=== PATIENT | female | born 1975 ===

== ENCOUNTER → 2024-12-05 08:33 | Outpatient (CLI) | payer OTHER ==
[2024-12-05 09:20] LABS: BASO % 1.3 % (0.1-1.2); EOS # 0.27 (0.04-0.54); EOS % 6.8 % (0.7-7.0); LYMPH # 1.09 (1.18-3.74); LYMPH % 27.6 % (19.3-53.1); MEAN PLATELET VOLUME 9.80 fl (9.4-12.4); MONO # 0.43 (0.24-0.82); MONO % 10.9 % (4.7-12.5); NEUT # 2.10 (1.56-6.13); NEUT % 53.1 % (34.0-71.1); RED CELL DISTRIBUTION WIDTH 14.6 % (11.6-14.4)
[2024-12-05 10:21] LABS: URINE APPEARANCE Clear; URINE BILIRRUBIN Negative (NEGATIVE); URINE BLOOD Moderate; URINE COLOR Yellow; URINE GLUCOSE Negative (NEGATIVE); URINE KETONE Negative (NEGATIVE); URINE LEUKOCYTE Negative; URINE NITRATE Negative; URINE PROTEIN Negative (NEGATIVE); URINE UROBILINOGEN 0.2 E.U./dl
[2024-12-05 10:25] LABS: URINE BACTERIA 50.3 uL (0.0-1933); URINE EPITHELIAL CELLS 3.6 uL (0.0-38.8); URINE RBC 24.9 uL (0.0-20.8); URINE WBC 5.5 uL (0.0-23.2)
[2024-12-05 10:28] LABS: CREATININE URINE RANDOM 111.0 MG/DL (30-125)
[2024-12-05 10:45] LABS: URINE CAST 0.00 uL (0.0-1.40)
[2024-12-05 10:47] LABS: % SATURACION 12.6 % (15-50); ALT/SGPT 16.0 U/L (12-78); AST/SGOT 14.0 U/L (15-37); BILIRUBIN TOTAL 0.42 mg/dL (0.3-1.2); BUN CREA RATIO 18.0 (7.0-25.0); CREATININE SERUM 0.74 mg/dL (0.55-1.02); FE 49.0 ug/dl (50-170); GFR 82.74; GLOBULINA 3.6 G/DL (2.4-3.5); GLUCOSE FASTING 77.0 mg/dL (65-100); LDH 151.0 U/L (84-246); OSMOLALITY SERUM 280.0 MOSM/KG (275-295); T4 FREE 1.06 NG/ML (0.76-1.46); TSH 0.785 uIU/mL (0.358-3.74)
[2024-12-06 07:10] LABS: hav igm Negative (Negative); hep b c Negative (Negative); hep b s ag Negative (Negative)
[2024-12-06 09:08] LABS: ANTI THYROID PEROXIDASE 29.0 IU/mL (0-34)
[2024-12-08 13:07] LABS: PARIETAL CELL ANTIBODIES 1.6 Units (0.0-20.0)
== END | disposition home or self-care (01) ==
LOC: LAB 08:33
PROVIDERS: ATTEND Internal Medicine Hematology & Oncology
DX: D72.818 Other decreased white blood cell count (principal); E55.9 Vitamin D deficiency, unspecified; H70.11 Chronic mastoiditis, right ear; D50.8 Other iron deficiency anemias; N39.0 Urinary tract infection, site not specified; R80.9 Proteinuria, unspecified; R94.4 Abnormal results of kidney function studies; I10 Essential (primary) hypertension; R74.02 Elevation of levels of lactic acid dehydrogenase [LDH]; K76.89 Other specified diseases of liver; D55.0 Anemia due to glucose-6-phosphate dehydrogenase [G6PD] deficiency; D51.0 Vitamin B12 deficiency anemia due to intrinsic factor deficiency; E03.8 Other specified hypothyroidism; E06.3 Autoimmune thyroiditis

== ENCOUNTER 2025-03-06 11:00 | Day surgery (SDC) | payer OTHER ==
[2025-02-26 13:54] LABS: URINE APPEARANCE Clear; URINE BACTERIA 59.4 uL (0.0-1933); URINE BILIRRUBIN Negative (NEGATIVE); URINE BLOOD Small; URINE COLOR Yellow; URINE EPITHELIAL CELLS 1.8 uL (0.0-38.8); URINE GLUCOSE Negative (NEGATIVE); URINE KETONE Negative (NEGATIVE); URINE LEUKOCYTE Negative; URINE NITRATE Negative; URINE PROTEIN Negative (NEGATIVE); URINE RBC 80.3 uL (0.0-20.8); URINE UROBILINOGEN 1.0 E.U./dl; URINE WBC 3.0 uL (0.0-23.2)
[2025-02-26 13:56] LABS: BASO % 0.7 % (0.1-1.2); EOS # 0.11 (0.04-0.54); EOS % 1.9 % (0.7-7.0); LYMPH # 1.47 (1.18-3.74); LYMPH % 25.4 % (19.3-53.1); MEAN PLATELET VOLUME 10.30 fl (9.4-12.4); MONO # 0.53 (0.24-0.82); MONO % 9.2 % (4.7-12.5); NEUT # 3.61 (1.56-6.13); NEUT % 62.5 % (34.0-71.1); RED CELL DISTRIBUTION WIDTH 14.4 % (11.6-14.4); URINE CAST 0.00 uL (0.0-1.40)
[2025-02-26 14:17] LABS: INR 1.0
[2025-02-26 14:41] LABS: BUN CREA RATIO 18.0 (7.0-25.0); CREATININE SERUM 0.74 mg/dL (0.55-1.02); GFR 82.74; GLUCOSE FASTING 78.0 mg/dL (65-100); OSMOLALITY SERUM 277.0 MOSM/KG (275-295)
[~2025-03-06 11:00] MED LIST: DIALYVITE WITH1 EACH; IRON236 MG; VITAMIN D310 MCG/1 M
[2025-03-06] MEDS ORDERED: CEFAZOLIN SODIUM 1,000 MG VIAL ONE (12:36)
[2025-03-06] MEDS ORDERED: POVIDONE-IODINE 118 ML BOTT TOP ONE (15:27)
[2025-03-06] MEDS ORDERED: CIPROFLOXACIN HCL 0.175 MG/DR DROPS OTIC ONE (17:00)
[2025-03-06] MEDS ORDERED: CIPROFLOXACIN2.5 ML OTIC (17:31)
[2025-03-06] MEDS ORDERED: CEPHALEXIN500 MG PO (17:32)
== END 2025-03-06 19:25 | disposition home or self-care (01) ==
LOC: CIR.AMB 11:00
PROVIDERS: ATTEND Otolaryngology Otology & Neurotology
DX: H72.91 Unspecified perforation of tympanic membrane, right ear (principal); H90.11 Conductive hearing loss, unilateral, right ear, with unrestricted hearing on the contralateral side; H74.21 Discontinuity and dislocation of right ear ossicles